=== PATIENT | male | born 1955 | race Caucasian/White ===

== ENCOUNTER 2016-04-11 12:39 | Emergency (ER) | payer OTHER ==
[~2016-04-11] VITALS: Ht 182.9 cm; Wt 103.0 kg
[2016-04-11 12:49] VITALS: TEMP 36.5; Ht 182.9 cm; Wt 103.0 kg
[2016-04-11] MEDS ORDERED: ATOR-22 PO (13:03)
--- NOTE | 2016-04-11 15:28 | EMERGENCY ROOM VISIT NOTE ---
ED Visit Note First contact with patient: 13:18 CHIEF COMPLAINT: Wrist injury HISTORY OF PRESENT ILLNESS: This 60-year-old male patient presents to the emergency department ambulatory complaining of pain in the left wrist after after a fall which occurred 2 days ago. The patient reports that he slipped at work on ice and fell, bracing himself with his left wrist. The patient is able to move their wrist. The patient states the pain is dull and 5/10. No laceration , no weakness. No numbness or tingling. The patient denies any other injury. The patient is able to move their fingers and elbow without difficulty. The patient has not had a previous fracture to this wrist. The patient has taken no medications for the pain. The patient was seen at [facility] and sent here for evaluation of a questionable infection. REVIEW OF SYSTEMS: A 6 system review of systems was performed with positives and pertinent negatives in the HPI. ALLERGIES: No known drug allergies MEDICATIONS: Lipitor PMH: Hyperlipidemia SOCIAL HISTORY: The patient lives locally with family. Nonsmoker. PHYSICAL EXAM: Vital Signs: Reviewed Nurse's notes, vital signs stable. GENERAL : This is a 60-year-old male, in no acute distress, but appears to be in pain, well-developed, well-nourished. NEURO: Alert and oriented to person place and time. Normal sensation to light and sharp touch. MUSCULOSKELETAL: There is no deformity of the left wrist. There is tenderness and mild edema over the dorsal aspect of the wrist. It is minimally erythematous. There is no snuff box tenderness. Range of motion is full. There is no tenderness of the elbow, hand or fingers. 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 Radial pulse 2+. SKIN: Normal and intact. The hand is warm and well perfused with capillary refill less than 2 seconds. EMERGENCY DEPARTMENT COURSE: I examined the patient. I was able to review the patient's images from [facility], which do not reveal any acute fractures or dislocations. There is minimal erythema over the dorsal aspect of the wrist and there is no clinical evidence of infection on my examination. The patient was placed in a wrist lacer brace. He will follow up with a workman's compensation approved provider as needed. He will return for any worsening symptoms. The patient was discharged home in good condition. DIAGNOSIS: Left wrist injury Current/Historical Medications Scheduled Atorvastatin (Lipitor), Unknown Dose PO DAILY Allergies Coded Allergies: No Known Allergies (Unverified , 04/11/16) Vital Signs Date Time Temp Pulse Resp B/P Pulse Ox O2 Delivery O2 Flow Rate FiO2 04/11/16 15:37 76 20 121/86 96 04/11/16 12:49 36.5 71 18 137/78 97 Room Air Departure Information Impression Primary Impression: Left wrist injury Dispostion Home / Self-Care Condition GOOD Referrals No Doctor, Assigned (PCP) Patient Instructions [facility] Additional Instructions You have been treated in the Emergency Department for Wrist Pain. For pain control, you can use the following [id number] medicines (if >12 yo): - Regular strength (325mg/tab) Tylenol (acetaminophen) 2 tabs every 4-6 hours as needed. Do not exceed 12 tablets in a 24 hour period. Avoid taking more than 4 grams (4000 mg) of Tylenol per day. This includes any other sources of acetaminophen you may take on a regular basis. - Regular strength (200 mg/tab) Advil (ibuprofen) 1-2 tabs every 4-6 hours as needed. Do not exceed a dose of 3200 mg per day. If this is a recent injury (<24 hrs), ice can be applied to the area of pain for the first 3 days to help decrease pain and inflammation. Wear the brace as needed until pain resolves. If you have continued pain, follow-up with orthopedics for further evaluation. Return to the Emergency Department if your current symptoms worsen despite treatment course outlined above, or if you develop any of the following symptoms : intractable pain despite aforementioned treatment course , worsening redness, or new onset of numbness or tingling of the fingers.
[2016-04-11 15:37] VITALS: BP 121/86; PULSE 76; O2SAT 96
== END 2016-04-11 15:39 | disposition home or self-care (01) ==
LOC: C.EDB 12:39 → C.EDD 15:39
DX: S69.92XA Unspecified injury of left wrist, hand and finger(s), initial encounter (principal); W00.9XXA Unspecified fall due to ice and snow, initial encounter; Y99.0 Civilian activity done for income or pay; E78.5 Hyperlipidemia, unspecified